=== PATIENT | female | born 1950 | race Caucasian/White ===

== ENCOUNTER 2019-02-02 12:07 | Emergency (ER) | payer MEDICARE, OTHER ==
[~2019-02-02] VITALS: Ht 157.5 cm; Wt 63.5 kg
[2019-02-02 12:17] VITALS: BP 152/70
--- NOTE | 2019-02-02 12:30 | NUR ---
68/F BIBS, CAME IN COMPALINING OF LOWER BACK PAIN. PAIN IS LOCATED ON RIGHT SIDE. 11/11, FEELS "LIKE NEEDLE PINS" INTERMITTENT PAIN, RADIATES TO ABDOMEN, ONSET OF 2-3X AGO WHEN LIFITING A HEAVY BOX. GETS WORSE WHEN BENDING, SITTING, AND GETTING UP. SHE STATED THAT SHE WOKE UP WITH PAIN IN THE MORNING. NO BRUISING OR SWELLING NOTED. PT PLACED SOLOMPAS AND TOOK TYLENOL AT HOME. VSS PMHX: HYPERLIPIDEMIA RX: SIMVASTATIN, CETILIZINE, HYDROXYZINE
[2019-02-02] MEDS ORDERED: ACETAMINOPHEN EXTRA STRENGTH 500 MG TAB PO ONE (14:30)
[2019-02-02] MEDS ORDERED: IBUPROFEN 400 MG TAB PO ONE (14:30)
[2019-02-02 15:24] LABS: BARBITURATE, URINE NEG. ng/ml (NEG <=200); BENZODIAZEPINE, URINE NEG. ng/mL (NEG <=200); CANNABINOID, URINE NEG. ng/mL (NEG <=50); COCAINE, URINE NEG. ng/mL (NEG <=300); OPIATE, URINE NEG. ng/mL (NEG <=2000); PHENCYCLIDINE SCREEN,URINE NEG. ng/mL (NEG <=25)
[2019-02-02 15:26] LABS: APPEARANCE,URINE CLEAR (CLEAR); BILIRUBIN,URINE NEGATIVE (NEGATIVE); BLOOD, URINE 1+ (NEGATIVE); COLOR,URINE YELLOW (YELLOW); LEUKOCYTE ESTERASE ,URINE NEGATIVE (NEGATIVE); NITRITE, URINE NEGATIVE (NEGATIVE); PH,URINE 5.5 (5.0-9.0); UGLUCOSE NEGATIVE (NEGATIVE)
[2019-02-02 15:49] LABS: RBC,URINE NONE SEEN /HPF (0-5); WBC,URINE NONE SEEN /HPF (0-5)
[2019-02-02 16:22] VITALS: BP 132/71
--- NOTE | 2019-02-02 16:22 | NUR ---
Patient discharged with v/s stable. Written and verbal after care instructions given and explained. Patient alert, oriented and verbalized understanding of instructions. Ambulatory with steady gait. All questions addressed prior to discharge. ID band removed. Patient advised to follow up with PMD. Rx of MOTRIN AND ACETAMINOPHEN given. Patient educated on indication of medication including possible reaction and side effects. Opportunity to ask questions provided and answered.
== END 2019-02-02 16:22 | disposition home or self-care (01) ==
LOC: MED 12:07
DX: S39.012A Strain of muscle, fascia and tendon of lower back, initial encounter (principal); E78.5 Hyperlipidemia, unspecified; X50.0XXA Overexertion from strenuous movement or load, initial encounter; Y92.89 Other specified places as the place of occurrence of the external cause; Y93.89 Activity, other specified; Y99.8 Other external cause status
CPT/HCPCS: 80305; 81001; 99283

== ENCOUNTER 2022-03-15 10:28 | Emergency (ER) | payer OTHER ==
[~2022-03-15] VITALS: Ht 154.9 cm; Wt 74.8 kg
[2022-03-15 10:42] VITALS: BP 140/72
--- NOTE | 2022-03-15 11:30 | NUR ---
71F PATIENT PRESENTS TO ED WITH C/O HIGH BLOOD PRESSURE SINCE THIS MORNING. PT STATES SHE HAS NO HX OF HYPERTENSION. PT REPORTS DEALING WITH A LOT OF STRESS SINCE LAST NIGHT. PT REPORTS A LIGHT DRY COUGH FOR 4 DAYS, LUNGS CLEAR BL; HR EVEN AND REGULAR; PT DENIES CP AND SOB AT THIS TIME; PATIENT STATES PAIN OF 0/10 AT THIS TIME; PATIENT POSITIONED FOR COMFORT; HOB ELEVATED; BEDRAILS UP X1; BED DOWN.
--- NOTE | 2022-03-15 11:49 | NUR ---
SWABS COLLECTED AND WALKED TO LAB.
--- NOTE | 2022-03-15 11:59 | NUR ---
Patient discharged with v/s stable. Written and verbal after care instructions given and explained. Patient verbalized understanding. Ambulatory with steady gait. All questions addressed prior to discharge. Advised to follow up with PMD.
== END 2022-03-15 11:59 | disposition home or self-care (01) ==
LOC: MED 10:28
DX: I10 Essential (primary) hypertension (principal); Z20.822 Contact with and (suspected) exposure to COVID-19; R01.1 Cardiac murmur, unspecified; Z79.899 Other long term (current) drug therapy
CPT/HCPCS: 93005; 99284

== ENCOUNTER 2023-01-31 12:39 | Emergency (ER) | payer OTHER ==
[~2023-01-31] VITALS: Ht 149.9 cm; Wt 60.8 kg
[2023-01-31 13:29] VITALS: BP 137/70; PULSE 73; RESP 18; TEMP 98.4; O2SAT 98
[2023-01-31 14:43] LABS: BASOPHILS % (AUTO) 0.8 % (0.0-2.0); EOSINOPHILS # (AUTO) 0.2 K/uL (0-0.4); EOSINOPHILS % (AUTO) 3.6 % (0.0-4.0); HEMATOCRIT 38.5 % (36-48); LYMPHOCYTES # (AUTO) 1.4 K/uL (2.5-16.5); LYMPHOCYTES % (AUTO) 25.8 % (20.5-51.1); MEAN CORPUSCULAR HEMOGLOBIN 31 pg (27-31); MEAN CORPUSCULAR HGB CONC 34 g/dL (33-37); MEAN CORPUSCULAR VOLUME 90.9 fL (80-94); MONOCYTES # (AUTO) 0.4 K/uL (0.8-1.0); NEUTROPHILS # (AUTO) 3.4 K/uL (1.8-7.7); NEUTROPHILS % (AUTO) 61.8 % (42.2-75.2); PLATELET COUNT (AUTO) 292 K/uL (140-450); RED BLOOD CELL COUNT(AUTO) 4.24 MIL/uL (4.20-5.40); RED CELL DISTRIBUTION WIDTH 12.7 % (11.6-13.7); WHITE BLOOD COUNT (AUTO) 5.5 K/uL (4.8-10.8)
[2023-01-31 14:51] LABS: ANION GAP 13.4 (8-16); CALCIUM 8.7 mg/dL (8.5-10.1); CARBON DIOXIDE 27.5 mmol/L (21-32); CHLORIDE 101 mmol/L (98-107); CREATININE 0.8 mg/dL (0.6-1.3); GLUCOSE 90 mg/dL (74-106); POTASSIUM 3.9 mmol/L (3.5-5.1); SODIUM SERUM 138 mmol/L (136-145); UREA NITROGEN, BLOOD 17 mg/dL (7-18)
[2023-01-31 14:55] LABS: APPEARANCE,URINE CLEAR (CLEAR); BILIRUBIN,URINE NEGATIVE (NEGATIVE); BLOOD, URINE NEGATIVE (NEGATIVE); LEUKOCYTE ESTERASE ,URINE NEGATIVE (NEGATIVE); NITRITE, URINE NEGATIVE (NEGATIVE); PH,URINE 5.5 (5.0-9.0); PROTEIN,URINE NEGATIVE (NEGATIVE); UGLUCOSE NEGATIVE (NEGATIVE); UROBILINOGEN,URINE 0.2 EU/dL (0.2 - 1)
[2023-01-31 15:00] LABS: COLOR,URINE STRAW (YELLOW)
[2023-01-31 22:02] VITALS: BP 150/75; PULSE 73; RESP 18; TEMP 98.4; O2SAT 98
== END 2023-01-31 22:02 | disposition home or self-care (01) ==
LOC: MED 12:39
DX: R42 Dizziness and giddiness (principal); Z79.899 Other long term (current) drug therapy
CPT/HCPCS: 36415; 80048; 81003; 85025; 93005; 99284

== ENCOUNTER 2023-04-25 10:06 | Emergency (ER) | payer OTHER ==
[~2023-04-25] VITALS: Ht 165.1 cm; Wt 63.5 kg
[2023-04-25 10:31] VITALS: BP 122/69; PULSE 80; RESP 18; TEMP 98.6; O2SAT 98
[2023-04-25 11:45] LABS: FLU A ANTIGEN negative (NEGATIVE); FLU B ANTIGEN negative (NEGATIVE)
[2023-04-25] MEDS ORDERED: NAPR-1704 PO (12:17)
[2023-04-25] MEDS ORDERED: NIRM1TAB9 PO (12:17)
[2023-04-25] MEDS ORDERED: PROM118S5 PO (12:17)
[2023-04-25 13:10] VITALS: BP 122/69; PULSE 80; RESP 18; TEMP 98.6; O2SAT 98
== END 2023-04-25 13:08 | disposition home or self-care (01) ==
LOC: MED 10:06
DX: U07.1 COVID-19 (principal); Z79.899 Other long term (current) drug therapy; Z79.1 Long term (current) use of non-steroidal anti-inflammatories (NSAID)
CPT/HCPCS: 99283